=== PATIENT | male | born 1980 | race Caucasian/White ===

== ENCOUNTER 2021-11-19 09:34 | Emergency (ER) | payer OTHER, SELFPAY ==
[2021-11-19 09:43] VITALS: BP 133/84; PULSE 57; RESP 20; TEMP 36.1; O2SAT 97
--- NOTE | 2021-11-19 09:50 | ED.HEATRA ---
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 No loss of consciousness. Has a laceration on the top of his scalp. Complaint: head injury Onset (ago): minute(s) (20) Mechanism of Injury: work related injury Place: outdoors Loss of Consciousness: no Location of injury: frontal Severity: moderate Quality: sharp and stabbing Radiation: none Other Injuries: none Associated symptoms: denies other symptoms Related Data Home Medications Medication Instructions Recorded Confirmed omeprazole 20 mg PO DAILY 11/19/21 11/19/21 Allergies Allergy/AdvReac Type Severity Reaction Status Date / Time No Known Allergies Allergy Unverified 04/07/19 14:47 Review of Systems Review of Systems: All systems reviewed & are unremarkable except as noted in HPI and below PMFSH Past Medical History Medical History (Updated 11/19/21 @ 10:12 by Asael Siu MD) Thrombocytopenia Social History Social History (Updated 11/19/21 @ 10:12 by Asael Siu MD) Smoking status: Never smoker Alcohol intake: current Alcohol use details: occasional Substance use: never Exam Const: General: healthy appearing, no acute distress and alert Nutritional Appearance: well nourished and thin Orientation/consciousness: patient oriented x3 HENMT: Head: normal to inspection Ears: external ears normal Eyes: Conjunctivae: conjunctivae normal Pupils: Equal, round and reactive pupils present EOM: EOMs intact bilaterally Neck: Neck: normal visual inspection Chest: Chest palpation & inspection: normal inspection of the chest Resp: Effort & Inspection: normal respiratory effort Auscultation: clear to auscultation bilaterally Cardio: Rate: regular rate Rhythm: regular rhythm GI: GI Palp: Yes Soft to palpation and Yes Tenderness to palpation present (GI) Auscultation: normal bowel sounds Back/Spine/Pelvis: Cervical Spine: cervical ROM normal Thoracic/Lumbar Spine: thoraco-lumbar ROM normal Skin: General skin exam: normal color Wounds: wounds noted laceration posterior frontal region size (4 cm) Neuro: General: patient oriented x3, moves all extremities, no meningeal signs and no focal motor deficits Cranial nerves: Yes CN's II-XII intact bilaterally Speech: normal speech Gait exam (Neuro): Normal gait present Other: GCS-15 Extrem: General: normal to inspection and no clubbing, cyanosis or edema Psych: Appearance: grossly normal and well kempt Mental Status: mental status grossly normal Affect: normal affect Attitude: cooperative Thought content: Yes Normal thought content present Procedures Laceration Laceration 1: Date: 11/19/21 Site: scalp Description: linear Depth: simple, single layer Local Anesthetic: lidocaine 1% and with epi Pre-repair: wound explored and irrigated ====== Skin Level ====== Skin layer closed with: shara Number of sutures: 8 Technique: simple, interrupted ====== Subcutaneous Layer ====== ====== Muscle Layer ====== ====== Tendon Layer ====== Discharge Plan Discharge Clinical Impression: Laceration of scalp Qualifiers: Encounter type: initial encounter Qualified Code(s): S01.01XA - Laceration without foreign body of scalp, initial encounter Patient Disposition: Home, Self-Care Condition: Stable Instructions: Staple Care (ED) Additional Instructions: use Tylenol and or Motrin as needed for pain. Do not get wet for 36 hours. Edison come out in 10 days. Prescriptions: No Action omeprazole 20 mg capsule,delayed rel
[2021-11-19] MEDS: LIDO 1%/EPINEPHRINE 1:100,000 20 ML VIAL INFILTRATE (09:51)
[2021-11-19 10:15] VITALS: BP 133/84; PULSE 57; RESP 20; TEMP 36.1; O2SAT 97
== END 2021-11-19 10:20 | disposition home or self-care (01) ==
PROVIDERS: Emergency Provider Emergency Medicine; PCP Internal Medicine
DX: S01.01XA Laceration without foreign body of scalp, initial encounter (principal); W22.8XXA Striking against or struck by other objects, initial encounter
CPT/HCPCS: 12002; 99282

== ENCOUNTER 2022-03-08 08:57 | Outpatient (CLI) | payer OTHER, SELFPAY ==
--- NOTE | ~2022-03-08 | CT_ITS ---
EXAMINATION: CT soft tissue neck w con DATE: 03/08/2022 09:47 INDICATION: Localized swelling, mass or lump at the right side of the neck TECHNIQUE: Computed tomography (CT) of the neck was performed with 75 mL Omnipaque-300 intravenous co ntrast. Automated exposure control and iterative reconstruction technique were employed. The dose-roslyn gth product was 587.88 mGy-cm. COMPARISON: None FINDINGS: Bilateral orbits are normal. Mastoid air cells and middle ear cavities are clear. Mucous retention cy st in the left maxillary sinus. The bilateral parotid, submandibular and thyroid glands are normal. A symmetric right-sided cervical lymphadenopathy. The largest lymph nodes along the proximal right inte rnal jugular chain and in the subcutaneous fat anterior to the sternocleidomastoid muscle along the i nferior margin of the right parotid gland. For reference a level 2A right jugular chain lymph node me asures 4.1 x 2.2 x 1.6 cm. The largest lymph node along the inferior margin of the right parotid ashleigh ures 2.0 x 1.6 x 1.3 cm. There are multiple sternal normal-sized lymph nodes in the right posterior c ervical triangle but which are more numerous than typical and significantly larger than the lymph nod es at the contralateral left posterior cervical triangle. There is also bilateral supraclavicular lym phadenopathy with multiple more numerous than typical normal-sized lymph nodes on both the left and r ight. There are of a couple enlarged lymph nodes at the left supraclavicular chain the largest measur ing 2.3 x 1.7 x 2.0 cm. The visualized superior mediastinum appears normal with no pathologically enl arged lymphadenopathy. There are a few mildly prominent but still normal-sized bilateral supraclavicu lar lymph nodes. Visualized upper lungs are clear. Thoracic aortic arch is normal in caliber with no dissection. Right vertebral artery is dominant with a diminutive left vertebral artery. Remaining cer vical vasculature appears normal. Bones are unremarkable. IMPRESSION: 1. Right cervical and bilateral supraclavicular and subpectoral lymphadenopathy most concerning for l ymphoma with differential including reactive or metastatic lymph nodes. Recommend ultrasound-guided b iopsy of one of the larger lymph nodes. Reviewed, dictated and finalized at location A. IMPRESSION: 1. Right cervical and bilateral supraclavicular and subpectoral lymphadenopathy most concerning for lymphoma with differential including reactive or metastati c lymph nodes. Recommend ultrasound-guided biopsy of one of the larger lymph no sylvia.
== END 2022-03-08 08:58 | disposition home or self-care (01) ==
LOC: CHSIMG 08:59
PROVIDERS: PCP Internal Medicine; Visit Provider Internal Medicine
DX: R22.1 Localized swelling, mass and lump, neck (principal)
CPT/HCPCS: 70491; Q9967

== ENCOUNTER 2022-04-08 13:06 | Outpatient (CLI) | payer OTHER, SELFPAY ==
--- NOTE | ~2022-04-08 | US_ITS ---
. EXAMINATION: US biopsy lymph node DATE: 04/08/2022 14:20 INDICATION: Cervical lymphadenopathy. TECHNIQUE: The procedure including the risks, benefits, and alternatives was discussed with the patie nt. Risks discussed included bleeding and infection. The patient understood the risks and agreed to p roceed. The skin overlying the right neck was prepped and draped in usual sterile fashion. Anestheti c was administered with 1% lidocaine subcutaneously. An 18 gauge core biopsy needle was then used to obtain six core biopsy specimens under continuous sonographic guidance. The entry site was cleaned a nd dressed. There were no immediate complications. FINDINGS: Ultrasound images demonstrate the needle in an enlarged high right internal jugular chain l ymph node. IMPRESSION: 1. Ultrasound-guided core needle biopsy of an enlarged high right internal jugular chain lymph node. Reviewed, dictated and finalized at location A. IMPRESSION: 1. Ultrasound-guided core needle biopsy of an enlarged high right internal jugu lar chain lymph node.
== END 2022-04-08 13:07 | disposition home or self-care (01) ==
PROVIDERS: PCP Internal Medicine; Visit Provider Internal Medicine
DX: R93.89 Abnormal findings on diagnostic imaging of other specified body structures (principal)
CPT/HCPCS: 38505; 76942; 88184; 88305